=== PATIENT | male | born 1950 | race Caucasian/White ===

== ENCOUNTER 2017-12-07 14:08 | Inpatient (IN) | payer MEDICARE ==
[~2017-12-07] VITALS: Ht 182.9 cm; Wt 71.5 kg
[~2017-12-07 14:08] MED LIST: ASPI81TA52 PO; ATI0.5T PO; ATOR10TA87 PO; HUM7525 SQ; INSU100V12 SQ; LISI2.5T2 PO; WARF2TAB PO
[2017-12-07] MEDS ORDERED: vancomycin/NS 1 GM ADD-VANTAGE 250 ML IV ONE (14:35)
[2017-12-07] MEDS ORDERED: piperacillin/tazo 3.375gm/50ml 50 ML IV ONE (14:35)
[2017-12-07] MEDS ORDERED: normal saline 1000ML IV soln IVB ONE (14:35)
[2017-12-07 14:53] LABS: HEMATOCRIT 41.5 % (42.0-52.0); HEMOGLOBIN 13.6 g/dl (14.0-17.9); MEAN CORPUSCULAR HGB CONC 32.8 % (33.0-36.5); MEAN CORPUSCULAR VOLUME 85.4 FL (78-98); MEAN PLATELET VOLUME 9.2 FL (7.4-10.4); PLATELET COUNT 172 X10'3 (140-440); RED BLOOD COUNT 4.86 X10'6 (4.70-6.10); RED CELL DISTRIBUTION WIDTH 12.5 % (11.5-14.5); WHITE BLOOD COUNT 3.4 X10'3 (4.5-11.0)
[2017-12-07 15:04] LABS: INR 2.8 INR; PARTIAL THROMBOPLASTIN TIME 46 SECONDS (22-32)
[2017-12-07 15:08] LABS: ALANINE AMINOTRANSFERASE 22 U/L (12-78); ALBUMIN/GLOBULIN RATIO 0.9 (1.1-1.5); ALKALINE PHOSPHATASE 80 IU/L (46-116); ANION GAP 8 (8-16); ASPARTATE AMINO TRANSFERASE 18 U/L (10-37); BILIRUBIN,TOTAL 0.6 MG/DL (0.1-1.0); BLOOD UREA NITROGEN 19 MG/DL (7-18); BUN/CREATININE RATIO 19.2 (5.4-32.0); CALCIUM 8.4 MG/DL (8.5-10.1); CHLORIDE 106 MMOL/L (99-107); CREATININE 0.99 MG/DL (0.60-1.10); GLUCOSE 202 MG/DL (70-104); MAGNESIUM 1.7 MG/DL (1.5-2.4); POTASSIUM 4.1 MMOL/L (3.5-5.1); SODIUM 142 MMOL/L (135-145); TOTAL PROTEIN 6.4 G/DL (6.4-8.2); eGFR 76 ML/MIN
[2017-12-07 15:13] LABS: CLARITY,URINE CLEAR (Clear); COLOR,URINE YELLOW (Yellow); GLUCOSE, URINE >=1000 mg/dl (Neg); KETONES,URINE >=80 mg/dl (Neg); LEUKOCYTE ESTERASE ,URINE NEGATIVE (Neg); NITRITES, URINE NEGATIVE (Neg); OCCULT BLOOD,URINE TRACE-LYSED (Neg); PROTEIN,URINE TRACE mg/dl (Neg); UROBILINOGEN,URINE 0.2 E.U/dL (0.2-1.0)
[2017-12-07 15:18] LABS: URINE AMPHETAMINE SCREEN NEGATIVE (Neg); URINE BARBITUATE SCREEN NEGATIVE (Neg); URINE BENZODIAZEPINES SCREEN NEGATIVE (Neg); URINE CANNABINOID SCREEN NEGATIVE (Neg); URINE COCAINE SCREEN NEGATIVE (Neg); URINE METHADONE SCREEN NEGATIVE (Neg); URINE OPIATE SCREEN NEGATIVE (Neg); URINE PHENCYCLIDINE SCREEN NEGATIVE (Neg)
[2017-12-07 15:23] LABS: UA COLLECTION TYPE STRAIGHT CATH
[2017-12-07 15:24] LABS: BACTERIA,URINE NONE SEEN /HPF (Neg); MUCUS STRANDS NONE SEEN /LPF (Neg); RBC,URINE 0-2 /HPF (0-2); SQUAMOUS EPITHELIAL CELL,UR NONE SEEN /LPF (FEW); WBC,URINE NONE SEEN /HPF (0-4)
[2017-12-07 15:29] LABS: PLATELET ESTIMATE NORMAL; TOTAL CELLS COUNTED 100
[2017-12-07] MEDS ORDERED: ondansetron/PF 4mg/2ml inj IV PRN (16:40)
[2017-12-07] MEDS ORDERED: MESSAGE TO PHARMACY PO ONE (16:40)
[2017-12-07] MEDS ORDERED: diphenhydrAMINE 25mg capsule PO PRN (16:40)
[2017-12-07] MEDS ORDERED: bisacodyl 10mg suppository rectal RC PRN (16:40)
[2017-12-07] MEDS ORDERED: dextrose 50%-water 50ml dispensing syringe IV PRN ×2 (16:40)
[2017-12-07] MEDS ORDERED: HYDROcodone/acetaminophen 5mg/325mg tablet PO PRN (16:40)
[2017-12-07] MEDS ORDERED: dextrose ORAL solution 15 GM/59 ML bottle PO PRN ×2 (16:40)
[2017-12-07] MEDS ORDERED: glucagon, human recombinant 1mg kit SUBCUT PRN (16:40)
[2017-12-07] MEDS ORDERED: morphine 2 MG/ML inj. syringe IV PRN ×2 (16:40)
[2017-12-07] MEDS ORDERED: acetaminophen 650mg rectal suppository RC PRN (16:40)
[2017-12-07] MEDS ORDERED: mag hydrox/Alum hydrox/simeth 30ml oral suspension PO PRN (16:40)
[2017-12-07] MEDS ORDERED: HYDROmorphone inj. 0.5 MG/0.5 ML DISP.SYRIN IV PRN ×2 (16:40)
[2017-12-07] MEDS ORDERED: HYDROcodone/acetaminophen 10/325mg tab PO PRN (16:40)
[2017-12-07] MEDS ORDERED: metoclopramide 5 mg/ml inj IV PRN (16:40)
[2017-12-07] MEDS ORDERED: diphenhydrAMINE 50 mg/ml inj IV PRN (16:40)
[2017-12-07] MEDS ORDERED: magnesium hydroxide 30ml (MOM) UD suspension PO PRN (16:40)
[2017-12-07] MEDS ORDERED: LORazepam 0.5 MG tablet PO PRN (16:40)
[2017-12-07] MEDS ORDERED: morphine 5 MG/ML injection IV PRN ×2 (17:00)
[2017-12-07] MEDS ORDERED: WARF5TAB7 PO (17:21)
[2017-12-07 17:59] LABS: OSMOLALITY 301 MOSM/K (280-300)
[2017-12-07] MEDS ORDERED: TRAM50TA2 PO (18:09)
[2017-12-07] MEDS ORDERED: COU2.5T PO (18:09)
[2017-12-07 18:13] LABS: HEMOGLOBIN A1C 6.8 % (4.5-6.2)
[2017-12-07 18:16] LABS: C-REACTIVE PROTEIN 3.36 MG/DL (0.0-0.5); CREATINE KINASE 147 U/L (39-308); LIPASE < 50 U/L (73-393); PHOSPHORUS 3.2 MG/DL (2.3-4.5)
[2017-12-07] MEDS: azithromycin 250mg tablet PO SCH (18:26)
[2017-12-07] MEDS: normal saline 1000ml 1,000 ML IV SCH (19:11)
[2017-12-07 20:05] VITALS: BP 138/89
[2017-12-07] MEDS: oseltamivir phos 75mg capsule PO SCH (20:44)
[2017-12-07] MEDS: atorvastatin 10mg tablet PO SCH (20:44)
[2017-12-07] MEDS: docusate sod 100mg capsule PO SCH (20:44)
[2017-12-07] MEDS: cefTRIAXone 1g/NS 100ml IVPB 100 ML IV SCH (20:45)
[2017-12-07] MEDS ORDERED: temazepam 15mg capsule PO PRN (21:00)
[2017-12-07] MEDS ORDERED: warfarin 1mg tablet PO SCH (21:00)
[2017-12-08] VITALS: BP 154/79
[2017-12-08 05:47] LABS: HEMATOCRIT 34.4 % (42.0-52.0); HEMOGLOBIN 11.9 g/dl (14.0-17.9); MEAN CORPUSCULAR HEMOGLOBIN 29.8 PG (27.0-31.0); MEAN CORPUSCULAR HGB CONC 34.7 % (33.0-36.5); MEAN CORPUSCULAR VOLUME 85.8 FL (78-98); MEAN PLATELET VOLUME 8.4 FL (7.4-10.4); PLATELET COUNT 140 X10'3 (140-440); RED CELL DISTRIBUTION WIDTH 13.3 % (11.5-14.5); WHITE BLOOD COUNT 3.4 X10'3 (4.5-11.0)
[2017-12-08] MEDS: normal saline 1000ml 1,000 ML IV SCH ×3 (05:54→17:09)
[2017-12-08 06:40] VITALS: BP 164/79
[2017-12-08 06:46] LABS: ALANINE AMINOTRANSFERASE 17 U/L (12-78); ALBUMIN 2.4 G/DL (3.4-5.0); ALBUMIN/GLOBULIN RATIO 0.8 (1.1-1.5); ALKALINE PHOSPHATASE 61 IU/L (46-116); ANION GAP 7 (8-16); ASPARTATE AMINO TRANSFERASE 17 U/L (10-37); BILIRUBIN,TOTAL 0.5 MG/DL (0.1-1.0); BLOOD UREA NITROGEN 13 MG/DL (7-18); BUN/CREATININE RATIO 19.1 (5.4-32.0); CALCIUM 7.8 MG/DL (8.5-10.1); CHLORIDE 107 MMOL/L (99-107); CHOL/HDL RATIO 3.4 (0.00-4.99); CHOLESTEROL 136 MG/DL (0-200); CREATININE 0.68 MG/DL (0.60-1.10); GLUCOSE 140 MG/DL (70-104); HDL CHOLESTEROL 40 MG/DL (35-60); LDL CHOLESTEROL 82 MG/DL (50-100); POTASSIUM 3.3 MMOL/L (3.5-5.1); SODIUM 142 MMOL/L (135-145); TOTAL CARBON DIOXIDE 27.9 MMOL/L (24-32); TOTAL PROTEIN 5.3 G/DL (6.4-8.2); TRIGLYCERIDES 61 MG/DL (20-135); eGFR > 90 ML/MIN
[2017-12-08] MEDS: pantoprazole 40mg Tablet.DR PO SCH (07:30)
[2017-12-08] MEDS ORDERED: lisinopril 2.5mg tablet PO SCH (08:00)
[2017-12-08 08:27] LABS: TOTAL CELLS COUNTED 100
[2017-12-08 08:29] LABS: PLATELET ESTIMATE DECREASED
[2017-12-08] MEDS: aspirin 81mg tablet.DR PO SCH (08:51)
[2017-12-08] MEDS: azithromycin 250mg tablet PO SCH (08:51)
[2017-12-08] MEDS: oseltamivir phos 75mg capsule PO SCH ×2 (08:51→19:22)
[2017-12-08] MEDS: docusate sod 100mg capsule PO SCH ×2 (08:53→19:29)
[2017-12-08] MEDS: cefTRIAXone 1g/NS 100ml IVPB 100 ML IV SCH ×2 (08:54→19:22)
[2017-12-08] MEDS ORDERED: magnesium 4gm in 100ml NS 100 ML IV PRN (09:35)
[2017-12-08] MEDS ORDERED: magnesium Cl slow-release 64mg tablet PO PRN (09:35)
[2017-12-08] MEDS ORDERED: potassium Cl 20 mEq SR tablet PO PRN (09:35)
[2017-12-08] MEDS ORDERED: potassium Cl 40MEQ/NS 500ml 500 ML IV PRN ×2 (09:35)
[2017-12-08 10:50] VITALS: BP 160/68
[2017-12-08] MEDS: lisinopril 20mg tablet PO SCH (11:20)
[2017-12-08 12:09] LABS: INR 3.2 INR; PROTHROMBIN TIME 32.2 SECONDS (9.0-12.0)
[2017-12-08] MEDS: acetaminophen 325mg tablet PO PRN (12:26)
[2017-12-08] MEDS: potassium Cl 20 mEq SR tablet PO PRN (12:30)
[2017-12-08] MEDS: insulin Lispro (HumaLOG) vial - multi-dose SQ SCH ×2 (13:49→19:21)
[2017-12-08] MEDS: lactobacillus rhamnosus 10,000 MMU CELLS/CAPSULE PO SCH (17:12)
[2017-12-08] MEDS ORDERED: MESSAGE TO NURSING PO NR (18:00)
[2017-12-08 20:00] VITALS: BP 143/69
[2017-12-08] MEDS: atorvastatin 10mg tablet PO SCH (21:57)
[2017-12-09] VITALS: BP 155/72
[2017-12-09] MEDS: normal saline 1000ml 1,000 ML IV SCH ×2 (05:24→19:57)
[2017-12-09 05:39] LABS: BASOPHILS % (AUTO) 0.6 % (0-1); EOSINOPHILS # (AUTO) 0.1 X10'3 (0-0.9); HEMATOCRIT 39.1 % (42.0-52.0); HEMOGLOBIN 13.4 g/dl (14.0-17.9); LYMPHOCYTES # (AUTO) 1.4 X10'3 (1.1-4.8); LYMPHOCYTES % (AUTO) 38.9 % (21-51); MEAN CORPUSCULAR HEMOGLOBIN 29.5 PG (27.0-31.0); MEAN CORPUSCULAR HGB CONC 34.1 % (33.0-36.5); MEAN CORPUSCULAR VOLUME 86.5 FL (78-98); MEAN PLATELET VOLUME 8.5 FL (7.4-10.4); MONOCYTES # (AUTO) 0.7 X10'3 (0-0.9); MONOCYTES % (AUTO) 18.8 % (2-12); NEUTROPHILS # (AUTO) 1.4 X10'3 (1.8-7.7); NEUTROPHILS % (AUTO) 37.7 % (42-75); PLATELET COUNT 134 X10'3 (140-440); RED BLOOD COUNT 4.52 X10'6 (4.70-6.10); RED CELL DISTRIBUTION WIDTH 13.1 % (11.5-14.5); WHITE BLOOD COUNT 3.6 X10'3 (4.5-11.0)
[2017-12-09 05:46] LABS: INR 3.2 INR; PROTHROMBIN TIME 32.1 SECONDS (9.0-12.0)
[2017-12-09 05:55] LABS: ALANINE AMINOTRANSFERASE 24 U/L (12-78); ALBUMIN 2.7 G/DL (3.4-5.0); ALBUMIN/GLOBULIN RATIO 0.8 (1.1-1.5); ALKALINE PHOSPHATASE 72 IU/L (46-116); ANION GAP 12 (8-16); ASPARTATE AMINO TRANSFERASE 23 U/L (10-37); BILIRUBIN,TOTAL 0.6 MG/DL (0.1-1.0); BLOOD UREA NITROGEN 12 MG/DL (7-18); BUN/CREATININE RATIO 17.4 (5.4-32.0); CALCIUM 8.2 MG/DL (8.5-10.1); CHLORIDE 103 MMOL/L (99-107); CREATININE 0.69 MG/DL (0.60-1.10); GLUCOSE 173 MG/DL (70-104); MAGNESIUM 1.5 MG/DL (1.5-2.4); POTASSIUM 3.5 MMOL/L (3.5-5.1); SODIUM 140 MMOL/L (135-145); TOTAL CARBON DIOXIDE 24.8 MMOL/L (24-32); eGFR > 90 ML/MIN
[2017-12-09 06:45] VITALS: BP 164/75
[2017-12-09] MEDS ORDERED: warfarin 5mg tablet PO SCH (08:00)
[2017-12-09] MEDS: aspirin 81mg tablet.DR PO SCH (08:23)
[2017-12-09] MEDS: lisinopril 20mg tablet PO SCH (08:23)
[2017-12-09] MEDS: docusate sod 100mg capsule PO SCH ×2 (08:23→19:58)
[2017-12-09] MEDS: oseltamivir phos 75mg capsule PO SCH ×2 (08:23→19:58)
[2017-12-09] MEDS: pantoprazole 40mg Tablet.DR PO SCH (08:23)
[2017-12-09] MEDS: lactobacillus rhamnosus 10,000 MMU CELLS/CAPSULE PO SCH ×2 (08:23→17:30)
[2017-12-09] MEDS: cefTRIAXone 1g/NS 100ml IVPB 100 ML IV SCH (08:23)
[2017-12-09] MEDS: azithromycin 250mg tablet PO SCH (08:23)
[2017-12-09] MEDS: insulin Lispro (HumaLOG) vial - multi-dose SQ SCH ×2 (08:33→13:20)
[2017-12-09 10:50] VITALS: BP 141/82
[2017-12-09 18:30] VITALS: BP 123/71
[2017-12-09] MEDS: CefTRIAXone 1 gm/50ml D5W ADV 50 ML IV SCH (19:58)
[2017-12-09] MEDS: atorvastatin 10mg tablet PO SCH (21:00)
[2017-12-10] VITALS: BP 155/83
[2017-12-10] MEDS: normal saline 1000ml 1,000 ML IV SCH ×3 (05:01→17:36)
[2017-12-10 05:28] LABS: BASOPHILS % (AUTO) 0.4 % (0-1); EOSINOPHILS # (AUTO) 0.2 X10'3 (0-0.9); EOSINOPHILS % (AUTO) 3.8 % (0-6); HEMATOCRIT 38.8 % (42.0-52.0); HEMOGLOBIN 13.4 g/dl (14.0-17.9); LYMPHOCYTES # (AUTO) 1.3 X10'3 (1.1-4.8); LYMPHOCYTES % (AUTO) 30.3 % (21-51); MEAN CORPUSCULAR HEMOGLOBIN 29.7 PG (27.0-31.0); MEAN CORPUSCULAR HGB CONC 34.7 % (33.0-36.5); MEAN CORPUSCULAR VOLUME 85.6 FL (78-98); MEAN PLATELET VOLUME 8.6 FL (7.4-10.4); MONOCYTES # (AUTO) 0.6 X10'3 (0-0.9); MONOCYTES % (AUTO) 13.4 % (2-12); NEUTROPHILS # (AUTO) 2.3 X10'3 (1.8-7.7); NEUTROPHILS % (AUTO) 52.1 % (42-75); PLATELET COUNT 148 X10'3 (140-440); RED BLOOD COUNT 4.53 X10'6 (4.70-6.10); RED CELL DISTRIBUTION WIDTH 13.1 % (11.5-14.5); WHITE BLOOD COUNT 4.4 X10'3 (4.5-11.0)
[2017-12-10 05:54] LABS: ALANINE AMINOTRANSFERASE 14 U/L (12-78); ALBUMIN 2.7 G/DL (3.4-5.0); ALBUMIN/GLOBULIN RATIO 0.8 (1.1-1.5); ALKALINE PHOSPHATASE 74 IU/L (46-116); ANION GAP 18 (8-16); ASPARTATE AMINO TRANSFERASE 21 U/L (10-37); BILIRUBIN,TOTAL 0.7 MG/DL (0.1-1.0); BLOOD UREA NITROGEN 11 MG/DL (7-18); BUN/CREATININE RATIO 15.7 (5.4-32.0); CALCIUM 8.3 MG/DL (8.5-10.1); CHLORIDE 100 MMOL/L (99-107); GLUCOSE 368 MG/DL (70-104); MAGNESIUM 1.3 MG/DL (1.5-2.4); POTASSIUM 3.8 MMOL/L (3.5-5.1); SODIUM 140 MMOL/L (135-145); TOTAL CARBON DIOXIDE 22.4 MMOL/L (24-32); eGFR > 90 ML/MIN
[2017-12-10 06:20] LABS: INR 2.5 INR; PROTHROMBIN TIME 25.3 SECONDS (9.0-12.0)
[2017-12-10] MEDS: lactobacillus rhamnosus 10,000 MMU CELLS/CAPSULE PO SCH ×2 (07:14→17:36)
[2017-12-10] MEDS: lisinopril 20mg tablet PO SCH (07:14)
[2017-12-10] MEDS: pantoprazole 40mg Tablet.DR PO SCH (07:14)
[2017-12-10] MEDS: aspirin 81mg tablet.DR PO SCH (07:14)
[2017-12-10] MEDS: oseltamivir phos 75mg capsule PO SCH ×2 (07:14→20:38)
[2017-12-10] MEDS: docusate sod 100mg capsule PO SCH ×2 (07:14→20:38)
[2017-12-10] MEDS: CefTRIAXone 1 gm/50ml D5W ADV 50 ML IV SCH ×2 (07:14→20:46)
[2017-12-10] MEDS: azithromycin 250mg tablet PO SCH (07:14)
[2017-12-10 07:47] VITALS: BP 168/97
[2017-12-10] MEDS: insulin Lispro (HumaLOG) vial - multi-dose SQ SCH ×3 (08:53→19:05)
[2017-12-10 12:00] VITALS: BP 133/55
[2017-12-10] MEDS: acetaminophen 325mg tablet PO PRN (12:37)
[2017-12-10] MEDS: magnesium 2GM in 50ml NS 50 ML IV PRN ×2 (13:33→15:59)
[2017-12-10 19:00] VITALS: BP 106/45
[2017-12-10] MEDS: atorvastatin 10mg tablet PO SCH (20:38)
[2017-12-10] MEDS ORDERED: warfarin 2.5mg tablet PO ONE (21:00)
[2017-12-10] MEDS: insulin glargine (Lantus) pen - multi-dose SQ SCH (21:07)
[2017-12-11] VITALS: BP 125/70
[2017-12-11 05:59] LABS: BASOPHILS % (AUTO) 0.5 % (0-1); EOSINOPHILS # (AUTO) 0.1 X10'3 (0-0.9); EOSINOPHILS % (AUTO) 3.6 % (0-6); HEMATOCRIT 33.8 % (42.0-52.0); HEMOGLOBIN 11.5 g/dl (14.0-17.9); LYMPHOCYTES # (AUTO) 1.7 X10'3 (1.1-4.8); LYMPHOCYTES % (AUTO) 42.5 % (21-51); MEAN CORPUSCULAR VOLUME 85.3 FL (78-98); MEAN PLATELET VOLUME 8.7 FL (7.4-10.4); MONOCYTES # (AUTO) 0.5 X10'3 (0-0.9); MONOCYTES % (AUTO) 13.3 % (2-12); NEUTROPHILS # (AUTO) 1.6 X10'3 (1.8-7.7); NEUTROPHILS % (AUTO) 40.1 % (42-75); PLATELET COUNT 159 X10'3 (140-440); RED BLOOD COUNT 3.96 X10'6 (4.70-6.10); RED CELL DISTRIBUTION WIDTH 13.2 % (11.5-14.5); WHITE BLOOD COUNT 4.1 X10'3 (4.5-11.0)
[2017-12-11 06:08] LABS: PROTHROMBIN TIME 29.7 SECONDS (9.0-12.0)
[2017-12-11 06:27] LABS: ALANINE AMINOTRANSFERASE 19 U/L (12-78); ALBUMIN 2.4 G/DL (3.4-5.0); ALBUMIN/GLOBULIN RATIO 0.8 (1.1-1.5); ALKALINE PHOSPHATASE 64 IU/L (46-116); ANION GAP 14 (8-16); ASPARTATE AMINO TRANSFERASE 18 U/L (10-37); BILIRUBIN,TOTAL 0.5 MG/DL (0.1-1.0); BLOOD UREA NITROGEN 19 MG/DL (7-18); BUN/CREATININE RATIO 25.3 (5.4-32.0); CALCIUM 7.6 MG/DL (8.5-10.1); CHLORIDE 106 MMOL/L (99-107); CREATININE 0.75 MG/DL (0.60-1.10); GLUCOSE 174 MG/DL (70-104); MAGNESIUM 1.6 MG/DL (1.5-2.4); POTASSIUM 3.1 MMOL/L (3.5-5.1); SODIUM 143 MMOL/L (135-145); TOTAL CARBON DIOXIDE 22.8 MMOL/L (24-32); TOTAL PROTEIN 5.3 G/DL (6.4-8.2); eGFR > 90 ML/MIN
[2017-12-11 07:00] VITALS: BP 169/79
[2017-12-11] MEDS: lactobacillus rhamnosus 10,000 MMU CELLS/CAPSULE PO SCH ×2 (07:03→17:19)
[2017-12-11] MEDS: pantoprazole 40mg Tablet.DR PO SCH (07:03)
[2017-12-11] MEDS: azithromycin 250mg tablet PO SCH (07:03)
[2017-12-11] MEDS: docusate sod 100mg capsule PO SCH ×2 (07:04→20:35)
[2017-12-11] MEDS: oseltamivir phos 75mg capsule PO SCH ×2 (07:04→20:35)
[2017-12-11] MEDS: aspirin 81mg tablet.DR PO SCH (07:04)
[2017-12-11] MEDS: lisinopril 20mg tablet PO SCH (07:04)
[2017-12-11] MEDS: potassium Cl 20 mEq SR tablet PO PRN ×3 (07:05→17:19)
[2017-12-11] MEDS: CefTRIAXone 1 gm/50ml D5W ADV 50 ML IV SCH ×2 (07:05→20:35)
[2017-12-11] MEDS ORDERED: warfarin 2.5mg tablet PO SCH (08:00)
[2017-12-11] MEDS: insulin Lispro (HumaLOG) vial - multi-dose SQ SCH ×2 (09:24→18:56)
[2017-12-11] MEDS: normal saline 1000ml 1,000 ML IV SCH ×2 (10:39→14:16)
[2017-12-11] MEDS ORDERED: potassium Cl 20 mEq SR tablet PO PRN (11:20)
[2017-12-11] MEDS ORDERED: magnesium 4gm in 100ml NS 100 ML IV PRN (11:20)
[2017-12-11] MEDS ORDERED: magnesium 2GM in 50ml NS 50 ML IV PRN (11:20)
[2017-12-11] MEDS ORDERED: potassium Cl 40MEQ/NS 500ml 500 ML IV PRN ×2 (11:20)
[2017-12-11] MEDS ORDERED: magnesium Cl slow-release 64mg tablet PO PRN (11:20)
[2017-12-11] MEDS ORDERED: diazepam 2mg tablet PO PRN (11:20)
[2017-12-11 12:00] VITALS: BP 159/84
[2017-12-11 19:00] VITALS: BP 167/78
[2017-12-11] MEDS: atorvastatin 10mg tablet PO SCH (20:35)
[2017-12-11] MEDS: insulin glargine (Lantus) pen - multi-dose SQ SCH (20:38)
[2017-12-11] MEDS ORDERED: warfarin 1mg tablet PO ONE (21:00)
[2017-12-12] VITALS: BP 170/75
[2017-12-12 03:33] VITALS: BP 158/71
[2017-12-12 06:07] LABS: BASOPHILS % (AUTO) 0.5 % (0-1); EOSINOPHILS # (AUTO) 0.3 X10'3 (0-0.9); EOSINOPHILS % (AUTO) 5.6 % (0-6); HEMATOCRIT 35.7 % (42.0-52.0); HEMOGLOBIN 12.4 g/dl (14.0-17.9); LYMPHOCYTES % (AUTO) 37.5 % (21-51); MEAN CORPUSCULAR HEMOGLOBIN 29.5 PG (27.0-31.0); MEAN CORPUSCULAR HGB CONC 34.7 % (33.0-36.5); MEAN PLATELET VOLUME 8.5 FL (7.4-10.4); MONOCYTES # (AUTO) 0.8 X10'3 (0-0.9); MONOCYTES % (AUTO) 14.9 % (2-12); NEUTROPHILS # (AUTO) 2.2 X10'3 (1.8-7.7); NEUTROPHILS % (AUTO) 41.5 % (42-75); PLATELET COUNT 191 X10'3 (140-440); WHITE BLOOD COUNT 5.3 X10'3 (4.5-11.0)
[2017-12-12 06:16] LABS: INR 2.9 INR; PROTHROMBIN TIME 28.7 SECONDS (9.0-12.0)
[2017-12-12 06:30] VITALS: BP 172/85
[2017-12-12 06:40] LABS: ALANINE AMINOTRANSFERASE 17 U/L (12-78); ALBUMIN 2.5 G/DL (3.4-5.0); ALBUMIN/GLOBULIN RATIO 0.8 (1.1-1.5); ALKALINE PHOSPHATASE 67 IU/L (46-116); ANION GAP 7 (8-16); ASPARTATE AMINO TRANSFERASE 16 U/L (10-37); BILIRUBIN,TOTAL 0.6 MG/DL (0.1-1.0); BLOOD UREA NITROGEN 9 MG/DL (7-18); BUN/CREATININE RATIO 14.8 (5.4-32.0); CALCIUM 8.1 MG/DL (8.5-10.1); CHLORIDE 107 MMOL/L (99-107); CREATININE 0.61 MG/DL (0.60-1.10); GLUCOSE 83 MG/DL (70-104); MAGNESIUM 1.4 MG/DL (1.5-2.4); POTASSIUM 3.6 MMOL/L (3.5-5.1); SODIUM 143 MMOL/L (135-145); TOTAL CARBON DIOXIDE 28.9 MMOL/L (24-32); TOTAL PROTEIN 5.6 G/DL (6.4-8.2); eGFR > 90 ML/MIN
[2017-12-12] MEDS: azithromycin 250mg tablet PO SCH (07:07)
[2017-12-12] MEDS: pantoprazole 40mg Tablet.DR PO SCH (07:08)
[2017-12-12] MEDS: aspirin 81mg tablet.DR PO SCH (07:08)
[2017-12-12] MEDS: oseltamivir phos 75mg capsule PO SCH (07:08)
[2017-12-12] MEDS: lactobacillus rhamnosus 10,000 MMU CELLS/CAPSULE PO SCH ×3 (07:08→17:30)
[2017-12-12] MEDS: lisinopril 20mg tablet PO SCH (07:08)
[2017-12-12] MEDS: acetaminophen 325mg tablet PO PRN (07:09)
[2017-12-12] MEDS: docusate sod 100mg capsule PO SCH (08:00)
[2017-12-12] MEDS: insulin Lispro (HumaLOG) vial - multi-dose SQ SCH ×3 (09:04→20:59)
[2017-12-12] MEDS: CefTRIAXone 1 gm/50ml D5W ADV 50 ML IV SCH ×2 (09:09→20:47)
[2017-12-12 11:00] VITALS: BP 138/70
[2017-12-12 20:00] VITALS: BP 138/71
[2017-12-12] MEDS: atorvastatin 10mg tablet PO SCH (20:46)
[2017-12-12] MEDS: insulin glargine (Lantus) pen - multi-dose SQ SCH (20:58)
[2017-12-12] MEDS ORDERED: warfarin 1mg tablet PO ONE (21:00)
[2017-12-12 23:00] VITALS: BP 141/81
[2017-12-13 05:55] LABS: INR 1.8 INR; PROTHROMBIN TIME 18.5 SECONDS (9.0-12.0)
[2017-12-13 06:21] LABS: MAGNESIUM 1.6 MG/DL (1.5-2.4); POTASSIUM 3.8 MMOL/L (3.5-5.1)
[2017-12-13] MEDS: azithromycin 250mg tablet PO SCH (07:41)
[2017-12-13] MEDS: pantoprazole 40mg Tablet.DR PO SCH (07:41)
[2017-12-13] MEDS: CefTRIAXone 1 gm/50ml D5W ADV 50 ML IV SCH (07:41)
[2017-12-13] MEDS: lisinopril 20mg tablet PO SCH (07:41)
[2017-12-13] MEDS: aspirin 81mg tablet.DR PO SCH (07:41)
[2017-12-13] MEDS: lactobacillus rhamnosus 10,000 MMU CELLS/CAPSULE PO SCH ×2 (07:41→17:30)
[2017-12-13 08:00] VITALS: BP 199/85
[2017-12-13] MEDS: insulin Lispro (HumaLOG) vial - multi-dose SQ SCH ×2 (09:07→13:26)
[2017-12-13] MEDS: insulin glargine (Lantus) pen - multi-dose SQ SCH (09:08)
[2017-12-13 11:21] VITALS: BP 137/81
[2017-12-13] MEDS ORDERED: AZI25OT PO (15:36)
[2017-12-13] MEDS ORDERED: cefTRIAXone 1g/NS 100ml IVPB 100 ML IV SCH (20:00)
== END 2017-12-13 18:15 | DRG 871 ==
LOC: ER 14:09 → ED HOLD 16:39 → MED 3N 20:00
PROVIDERS: ADMIT Family Medicine; ATTEND Internal Medicine
DX: A41.9 Sepsis, unspecified organism (principal); J09.X1 Influenza due to identified novel influenza A virus with pneumonia; E11.00 Type 2 diabetes mellitus with hyperosmolarity without nonketotic hyperglycemic-hyperosmolar coma (NKHHC); I67.4 Hypertensive encephalopathy; J18.8 Other pneumonia, unspecified organism; I48.91 Unspecified atrial fibrillation; I16.1 Hypertensive emergency; E83.42 Hypomagnesemia; E86.0 Dehydration; I10 Essential (primary) hypertension; Z79.01 Long term (current) use of anticoagulants; Z79.899 Other long term (current) drug therapy; Z79.82 Long term (current) use of aspirin; Z79.4 Long term (current) use of insulin; Z86.73 Personal history of transient ischemic attack (TIA), and cerebral infarction without residual deficits; Z82.61 Family history of arthritis
CPT/HCPCS: 36415; 70450; 71045; 71250; 74176; 80053; 80061; 80305; 81001; 82550; 82948; 83036; 83605; 83690; 83735; 83880; 83930; 84100; 84132; 84145; 85025; 85610; 85651; 85730; 86140; 87040; 87070; 87502; 87503; 93005; 93306; 94760; 96365; 96366; 96368; 97110; 97116; 97161; 97530; 99285; A4310; A6258; A6446; J0696; J1815; J2543; J3370; J3475; J7030

== ENCOUNTER 2018-01-17 09:44 | Inpatient (IN) | payer MEDICARE ==
[~2018-01-17] VITALS: Ht 177.8 cm; Wt 71.0 kg
[~2018-01-17 09:44] MED LIST changes: -ATI0.5T PO; +AZI25OT PO; +COU2.5T PO; -LISI2.5T2 PO; +TRAM50TA2 PO; +WARF-55 PO; -WARF2TAB PO
[2018-01-17 10:34] LABS: BASOPHILS % (AUTO) 0 % (0-1); EOSINOPHILS % (AUTO) 0.4 % (0-6); HEMOGLOBIN 13.6 g/dl (14.0-17.9); LYMPHOCYTES % (AUTO) 12.5 % (21-51); MEAN CORPUSCULAR HEMOGLOBIN 29.1 PG (27.0-31.0); MEAN CORPUSCULAR VOLUME 85.6 FL (78-98); MONOCYTES # (AUTO) 0.7 X10'3 (0-0.9); MONOCYTES % (AUTO) 7.9 % (2-12); NEUTROPHILS # (AUTO) 6.6 X10'3 (1.8-7.7); NEUTROPHILS % (AUTO) 79.2 % (42-75); PLATELET COUNT 264 X10'3 (140-440); RED BLOOD COUNT 4.67 X10'6 (4.70-6.10); RED CELL DISTRIBUTION WIDTH 14.3 % (11.5-14.5); WHITE BLOOD COUNT 8.4 X10'3 (4.5-11.0)
[2018-01-17 10:45] LABS: INR 2.6 INR; PARTIAL THROMBOPLASTIN TIME 45 SECONDS (22-32); PROTHROMBIN TIME 25.6 SECONDS (9.0-12.0)
[2018-01-17 10:48] LABS: ALANINE AMINOTRANSFERASE 21 U/L (12-78); ALBUMIN 2.9 G/DL (3.4-5.0); ALBUMIN/GLOBULIN RATIO 0.7 (1.1-1.5); ALKALINE PHOSPHATASE 125 IU/L (46-116); ANION GAP 11 (8-16); ASPARTATE AMINO TRANSFERASE 17 U/L (10-37); BLOOD UREA NITROGEN 12 MG/DL (7-18); BUN/CREATININE RATIO 16.2 (5.4-32.0); CALCIUM 8.8 MG/DL (8.5-10.1); CHLORIDE 98 MMOL/L (99-107); CREATININE 0.74 MG/DL (0.60-1.10); GLUCOSE 197 MG/DL (70-104); SODIUM 136 MMOL/L (135-145); TOTAL CARBON DIOXIDE 26.7 MMOL/L (24-32); TOTAL PROTEIN 6.9 G/DL (6.4-8.2); eGFR > 90 ML/MIN
[2018-01-17] MEDS ORDERED: normal saline 1000ML IV soln IVB ONE (10:55)
[2018-01-17 11:15] LABS: CLARITY,URINE CLEAR (Clear); COLOR,URINE YELLOW (Yellow); GLUCOSE, URINE 250 mg/dl (Neg); KETONES,URINE >=80 mg/dl (Neg); LEUKOCYTE ESTERASE ,URINE NEGATIVE (Neg); NITRITES, URINE NEGATIVE (Neg); OCCULT BLOOD,URINE SMALL (Neg); PROTEIN,URINE 30 mg/dl (Neg); UROBILINOGEN,URINE 0.2 E.U/dL (0.2-1.0)
[2018-01-17 11:28] LABS: URINE AMPHETAMINE SCREEN NEGATIVE (Neg); URINE BARBITUATE SCREEN NEGATIVE (Neg); URINE BENZODIAZEPINES SCREEN NEGATIVE (Neg); URINE CANNABINOID SCREEN NEGATIVE (Neg); URINE COCAINE SCREEN NEGATIVE (Neg); URINE METHADONE SCREEN NEGATIVE (Neg); URINE OPIATE SCREEN NEGATIVE (Neg); URINE PHENCYCLIDINE SCREEN NEGATIVE (Neg)
[2018-01-17 11:34] LABS: UA COLLECTION TYPE FOLEY CATH
[2018-01-17 11:46] LABS: RENAL CELLS, URINE MODERATE /HPF; TRANSITIONAL EPI CELLS,URINE FEW /HPF
[2018-01-17 11:47] LABS: BACTERIA,URINE FEW /HPF (Neg); MUCUS STRANDS NONE SEEN /LPF (Neg); RBC,URINE 0-2 /HPF (0-2); SQUAMOUS EPITHELIAL CELL,UR FEW /LPF (FEW); WBC,URINE 0-4 /HPF (0-4)
[2018-01-17] MEDS ORDERED: traMADol 50MG tablet PO PRN (12:10)
[2018-01-17] MEDS ORDERED: magnesium 4gm in 100ml NS 100 ML IV PRN (12:10)
[2018-01-17] MEDS ORDERED: acetaminophen 325mg tablet PO PRN (12:10)
[2018-01-17] MEDS ORDERED: magnesium hydroxide 30ml (MOM) UD suspension PO PRN (12:10)
[2018-01-17] MEDS ORDERED: potassium Cl 40MEQ/NS 500ml 500 ML IV PRN ×2 (12:10)
[2018-01-17] MEDS ORDERED: mag hydrox/Alum hydrox/simeth 30ml oral suspension PO PRN (12:10)
[2018-01-17] MEDS ORDERED: magnesium Cl slow-release 64mg tablet PO PRN (12:10)
[2018-01-17] MEDS ORDERED: bisacodyl 10mg suppository rectal RC PRN (12:10)
[2018-01-17] MEDS ORDERED: potassium Cl 20 mEq SR tablet PO PRN ×2 (12:10)
[2018-01-17] MEDS ORDERED: magnesium 2GM in 50ml NS 50 ML IV PRN (12:10)
[2018-01-17] MEDS ORDERED: ondansetron/PF 4mg/2ml inj IV PRN (12:10)
[2018-01-17] MEDS: normal saline 1000ml 1,000 ML IV SCH (12:45)
[2018-01-17 18:00] VITALS: BP 154/74
[2018-01-17] MEDS ORDERED: dextrose ORAL solution 15 GM/59 ML bottle PO PRN ×2 (18:30)
[2018-01-17] MEDS ORDERED: glucagon, human recombinant 1mg kit SUBCUT PRN (18:30)
[2018-01-17] MEDS ORDERED: dextrose 50%-water 50ml dispensing syringe IV PRN ×2 (18:30)
[2018-01-17] MEDS ORDERED: MESSAGE TO PHARMACY PO ONE (18:30)
[2018-01-17] MEDS: docusate sod 100mg capsule PO SCH (19:45)
[2018-01-17] MEDS: insulin Lispro (HumaLOG) vial - multi-dose SQ SCH (20:30)
[2018-01-17] MEDS: insulin glargine (Lantus) pen - multi-dose SQ SCH (21:00)
[2018-01-17] MEDS ORDERED: warfarin 5mg tablet PO SCH (21:00)
[2018-01-17] MEDS: atorvastatin 10mg tablet PO SCH (21:00)
[2018-01-17 22:00] VITALS: BP 135/56
[2018-01-18] MEDS: normal saline 1000ml 1,000 ML IV SCH ×2 (01:06→15:23)
[2018-01-18 02:00] VITALS: BP 153/78
[2018-01-18] MEDS: insulin Lispro (HumaLOG) vial - multi-dose SQ SCH ×3 (03:53→13:24)
[2018-01-18] MEDS: insulin glargine (Lantus) pen - multi-dose SQ SCH (03:54)
[2018-01-18 06:00] VITALS: BP 122/55
[2018-01-18 07:02] LABS: BASOPHILS % (AUTO) 0 % (0-1); EOSINOPHILS % (AUTO) 0 % (0-6); HEMATOCRIT 36.2 % (42.0-52.0); HEMOGLOBIN 12.1 g/dl (14.0-17.9); LYMPHOCYTES # (AUTO) 0.9 X10'3 (1.1-4.8); LYMPHOCYTES % (AUTO) 6.2 % (21-51); MEAN CORPUSCULAR HEMOGLOBIN 28.8 PG (27.0-31.0); MEAN CORPUSCULAR HGB CONC 33.4 % (33.0-36.5); MEAN CORPUSCULAR VOLUME 86.2 FL (78-98); MEAN PLATELET VOLUME 8.2 FL (7.4-10.4); MONOCYTES # (AUTO) 1.2 X10'3 (0-0.9); MONOCYTES % (AUTO) 7.9 % (2-12); NEUTROPHILS % (AUTO) 85.9 % (42-75); PLATELET COUNT 278 X10'3 (140-440); RED CELL DISTRIBUTION WIDTH 14.4 % (11.5-14.5); WHITE BLOOD COUNT 15.1 X10'3 (4.5-11.0)
[2018-01-18 07:12] LABS: INR 3.7 INR; PROTHROMBIN TIME 36.4 SECONDS (9.0-12.0)
[2018-01-18 07:23] LABS: ALBUMIN 2.6 G/DL (3.4-5.0); ANION GAP 18 (8-16); BLOOD UREA NITROGEN 26 MG/DL (7-18); BUN/CREATININE RATIO 18.2 (5.4-32.0); CALCIUM 9.3 MG/DL (8.5-10.1); CHLORIDE 102 MMOL/L (99-107); CREATININE 1.43 MG/DL (0.60-1.10); GLUCOSE 427 MG/DL (70-104); MAGNESIUM 1.6 MG/DL (1.5-2.4); POTASSIUM 4.7 MMOL/L (3.5-5.1); SODIUM 136 MMOL/L (135-145); TOTAL CARBON DIOXIDE 15.9 MMOL/L (24-32); eGFR 49 ML/MIN
[2018-01-18] MEDS: docusate sod 100mg capsule PO SCH ×2 (07:57→08:03)
[2018-01-18] MEDS: enoxaparin 40mg/0.4ml syringe SUBCUT SCH (07:57)
[2018-01-18] MEDS: aspirin 81mg tablet.DR PO SCH ×3 (07:57→08:04)
[2018-01-18] MEDS: K and/or MAG REPLACEMENT MC SCH (08:00)
[2018-01-18 10:00] VITALS: BP 116/89
[2018-01-18 14:00] VITALS: BP 127/49
[2018-01-18 18:00] VITALS: BP 135/63
[2018-01-18] MEDS ORDERED: warfarin 5mg tablet PO SCH (21:00)
[2018-01-18] MEDS: atorvastatin 10mg tablet PO SCH (21:34)
[2018-01-18 22:00] VITALS: BP 179/85
[2018-01-19] MEDS: normal saline 1000ml 1,000 ML IV SCH (04:33)
[2018-01-19] MEDS ORDERED: LORazepam 2 mg/ml vial IM PRN (05:45)
[2018-01-19] MEDS: enoxaparin 40mg/0.4ml syringe SUBCUT SCH (07:24)
[2018-01-19] MEDS: aspirin 81mg tablet.DR PO SCH (07:24)
[2018-01-19] MEDS: docusate sod 100mg capsule PO SCH ×2 (07:24→21:09)
[2018-01-19] MEDS: insulin glargine (Lantus) pen - multi-dose SQ SCH (07:27)
[2018-01-19] MEDS ORDERED: insulin glargine (Lantus) pen - multi-dose SQ SCH ×2 (07:30→08:00)
[2018-01-19] MEDS: K and/or MAG REPLACEMENT MC SCH (08:00)
[2018-01-19] MEDS: insulin Lispro (HumaLOG) vial - multi-dose SQ SCH ×3 (09:53→19:08)
[2018-01-19 10:00] VITALS: BP 167/94
[2018-01-19 10:31] LABS: BASOPHILS # (AUTO) 0.1 X10'3 (0-0.2); BASOPHILS % (AUTO) 1.2 % (0-1); EOSINOPHILS % (AUTO) 0.6 % (0-6); HEMATOCRIT 37.4 % (42.0-52.0); HEMOGLOBIN 12.5 g/dl (14.0-17.9); LYMPHOCYTES # (AUTO) 1.2 X10'3 (1.1-4.8); LYMPHOCYTES % (AUTO) 17.1 % (21-51); MEAN CORPUSCULAR HEMOGLOBIN 29.3 PG (27.0-31.0); MEAN CORPUSCULAR HGB CONC 33.5 % (33.0-36.5); MEAN CORPUSCULAR VOLUME 87.3 FL (78-98); MEAN PLATELET VOLUME 8.3 FL (7.4-10.4); MONOCYTES # (AUTO) 0.6 X10'3 (0-0.9); MONOCYTES % (AUTO) 9.1 % (2-12); PLATELET COUNT 246 X10'3 (140-440); RED BLOOD COUNT 4.28 X10'6 (4.70-6.10); RED CELL DISTRIBUTION WIDTH 14.2 % (11.5-14.5)
[2018-01-19 10:48] LABS: ALBUMIN 2.8 G/DL (3.4-5.0); ANION GAP 12 (8-16); BLOOD UREA NITROGEN 14 MG/DL (7-18); BUN/CREATININE RATIO 16.1 (5.4-32.0); CALCIUM 9.2 MG/DL (8.5-10.1); CHLORIDE 105 MMOL/L (99-107); CREATININE 0.87 MG/DL (0.60-1.10); GLUCOSE 365 MG/DL (70-104); MAGNESIUM 1.6 MG/DL (1.5-2.4); POTASSIUM 4.7 MMOL/L (3.5-5.1); SODIUM 142 MMOL/L (135-145); TOTAL CARBON DIOXIDE 25.5 MMOL/L (24-32); eGFR 88 ML/MIN
[2018-01-19 10:51] LABS: PROTHROMBIN TIME 50.9 SECONDS (9.0-12.0)
[2018-01-19 11:12] LABS: INR 5.2 INR
[2018-01-19 19:00] VITALS: BP 154/75
[2018-01-19] MEDS ORDERED: warfarin 2.5mg tablet PO SCH (21:00)
[2018-01-19] MEDS: atorvastatin 10mg tablet PO SCH (21:09)
[2018-01-19 22:00] VITALS: BP 160/88
[2018-01-20 06:00] VITALS: BP 157/94
[2018-01-20 06:53] LABS: BASOPHILS # (AUTO) 0.1 X10'3 (0-0.2); BASOPHILS % (AUTO) 1.3 % (0-1); EOSINOPHILS # (AUTO) 0.2 X10'3 (0-0.9); HEMATOCRIT 38.3 % (42.0-52.0); HEMOGLOBIN 13.2 g/dl (14.0-17.9); LYMPHOCYTES # (AUTO) 2.2 X10'3 (1.1-4.8); LYMPHOCYTES % (AUTO) 33.9 % (21-51); MEAN CORPUSCULAR HEMOGLOBIN 29.1 PG (27.0-31.0); MEAN CORPUSCULAR HGB CONC 34.4 % (33.0-36.5); MEAN CORPUSCULAR VOLUME 84.5 FL (78-98); MEAN PLATELET VOLUME 8.5 FL (7.4-10.4); MONOCYTES # (AUTO) 0.8 X10'3 (0-0.9); MONOCYTES % (AUTO) 11.5 % (2-12); NEUTROPHILS # (AUTO) 3.3 X10'3 (1.8-7.7); NEUTROPHILS % (AUTO) 50.3 % (42-75); PLATELET COUNT 250 X10'3 (140-440); RED BLOOD COUNT 4.53 X10'6 (4.70-6.10); RED CELL DISTRIBUTION WIDTH 13.8 % (11.5-14.5); WHITE BLOOD COUNT 6.6 X10'3 (4.5-11.0)
[2018-01-20 07:12] LABS: ALBUMIN 2.5 G/DL (3.4-5.0); ANION GAP 11 (8-16); BLOOD UREA NITROGEN 8 MG/DL (7-18); BUN/CREATININE RATIO 14.8 (5.4-32.0); CALCIUM 8.6 MG/DL (8.5-10.1); CHLORIDE 103 MMOL/L (99-107); CREATININE 0.54 MG/DL (0.60-1.10); GLUCOSE 199 MG/DL (70-104); MAGNESIUM 1.3 MG/DL (1.5-2.4); SODIUM 140 MMOL/L (135-145); TOTAL CARBON DIOXIDE 26.5 MMOL/L (24-32); eGFR > 90 ML/MIN
[2018-01-20 07:14] LABS: INR 2.5 INR; PROTHROMBIN TIME 24.8 SECONDS (9.0-12.0)
[2018-01-20] MEDS: aspirin 81mg tablet.DR PO SCH (09:40)
[2018-01-20] MEDS: insulin glargine (Lantus) pen - multi-dose SQ SCH (09:42)
[2018-01-20] MEDS: insulin Lispro (HumaLOG) vial - multi-dose SQ SCH ×2 (09:44→13:41)
[2018-01-20] MEDS: docusate sod 100mg capsule PO SCH (09:45)
[2018-01-20] MEDS: K and/or MAG REPLACEMENT MC SCH (09:45)
[2018-01-20 10:00] VITALS: BP 112/67
[2018-01-22] MEDS ORDERED: warfarin 5mg tablet PO SCH (21:00)
== END 2018-01-20 16:00 | DRG 640 ==
LOC: ER 09:45 → ED HOLD 12:08 → ORTHO 4S 18:17
PROVIDERS: ADMIT Internal Medicine; ATTEND Internal Medicine
DX: E86.0 Dehydration (principal); E43 Unspecified severe protein-calorie malnutrition; G93.41 Metabolic encephalopathy; I48.91 Unspecified atrial fibrillation; F03.90 Unspecified dementia, unspecified severity, without behavioral disturbance, psychotic disturbance, mood disturbance, and anxiety; E11.9 Type 2 diabetes mellitus without complications; E78.5 Hyperlipidemia, unspecified; D63.8 Anemia in other chronic diseases classified elsewhere; R29.810 Facial weakness; I10 Essential (primary) hypertension; K42.9 Umbilical hernia without obstruction or gangrene; Z79.4 Long term (current) use of insulin; Z79.899 Other long term (current) drug therapy; Z79.01 Long term (current) use of anticoagulants; Z79.82 Long term (current) use of aspirin; Z86.73 Personal history of transient ischemic attack (TIA), and cerebral infarction without residual deficits; Z82.61 Family history of arthritis; Z68.22 Body mass index [BMI] 22.0-22.9, adult
CPT/HCPCS: 36415; 70450; 70551; 71045; 74176; 80048; 80053; 80305; 81001; 82140; 82948; 83036; 83735; 85025; 85610; 85730; 87070; 92616; 93005; 93308; 93880; 96360; 97110; 97116; 97161; 97530; 99285; A4315; A6213; C1758; J1650; J1815; J2060; J7030